=== PATIENT | female | born 1945 | race Caucasian/White ===

== ENCOUNTER 2017-01-24 11:55 | Outpatient (CLI) | payer OTHER ==
--- NOTE | 2017-01-24 12:33 | DI ---
EXAM: RIGHT SHOULDER HISTORY: Shoulder pain FINDINGS: Right shoulder three-view. Bone and joint structures are within normal limits. There is no joint dislocation or fracture identified. Bone density and soft tissues are unremarkable. IMPRESSION: Within normal limits.
== END 2017-01-24 11:56 | disposition home or self-care (01) ==
LOC: RAD 11:55
PROVIDERS: ATTEND Family Medicine
DX: T14.8XXA Other injury of unspecified body region, initial encounter (principal); M25.519 Pain in unspecified shoulder

== ENCOUNTER 2017-04-06 09:00 | Outpatient (RCR) ==
--- NOTE | 2017-03-25 15:37 | RS.OPPTEV2 ---
Date of Note: 03/25/17 Visit #: 1 Date of Evaluation: 03/25/17 Payer Source: MEDICARE Surgery Performed?: No Treatment Diagnosis: R shoulder pain, L plantar fascitis History of Condition/Mechanism of Injury:: pt states R shld pain began around after working in flower beds carrying bags of rock. pt states her L foot began hurting approx a month ago. Prior Level of Function.....Patient was independent with: ADL's, Self Care, Caregiving, Ambulation/Mobility, Community Integration/Access Functional Limitations: Reaching, Pulling, Lifting, Carrying, Ambulation Current Subjective/complaints:: pt c/o pain in R shld limiting motion. pt is RUE dominant. pt also with c/o L pain in medial heel. pt states that she did get inserts for her shoes and it has helped "some" with the foot pain. *Precautions: n/a Medical History Medical History: Unremarkable Smoking Status: Never smoker Hx Home Medications: takes ibuprofen occasionally Patient's Goals: decrease pain and be able to perform normal activities. Pain Assessment - Pain Description Pain Location: R shld Pain Description: Sharp, Aching Current Pain Intensity: 6 Worst Pain Intensity: 8 Other Comments regarding Pain:: pt also has pain in L medial heel Functional Outcome Measure UE Functional Index: 70 (12%) - G Codes & Severity Modifier G Codes & Modifier: mobility current CJ. mobility goal CI Source of G Code score: UE functional index and PT eval Observation - Observation Posture: Forward Head, Rounded Shoulders, Increased Thoracic Kyphosis Gait - Gait Pattern General Gait Pattern Observation: No Deviations/Normal General Range of Motion: LUE WFL's. BLE WFL's Muscle Strength: LUE 5/5. BLE 5/5 Special Tests: pt with pain in L medial heel. pt presents with increased tightness in L heel cord as well as BLE hamstring tightness. pt noted pronation B feet. Shoulder ROM: Left WFL's Shoulder Muscle Strength: Left WFL's - Right Shoulder ROM Right Shoulder Flexion: 130 (AROM in supine) Right Shoulder Abduction: 100 (AROM in supine) Right Shoulder ROM Limitations: Soft Tissue Tightness, Muscle Weakness, Pain Comments: Ext rotation WFL's with pain - Right Shoulder Strength Right Shoulder Flexion: 4- Good- Right Shoulder Abduction: 3+ Fair+ Right Shoulder External Rotation: 3+ Fair+ Right Shoulder Internal Rotation: 4- Good- Comments: elbow flex/ext 4-/5 RUE - Special Tests Shoulder Empty Can (Supraspinatus) Test: Negative Right Shoulder Yergason's Test: Negative Right Shoulder Drop Arm Test: Negative Right Comments: + lift off test (subscapularis) on R Palpation Palpation Findings: Tenderness, Muscle Guarding (tenderness and muscle tightness and guarding in upper trap and subscapular treatment.) Sensation - Sensation Right Upper Extremity: Intact/Normal Left Upper Extremity: Intact/Normal Right Lower Extremity: Intact/Normal Left Lower Extremity: Intact/Normal Balance - Sitting Balance Static Sitting Balance: Normal Dynamic Sitting Balance: Normal - Standing Balance Static Standing Balance: Normal Dynamic Standing Balance: Normal - Treatment Modality: Ultrasound Parameters/Method Applied: 1.5w/cm2 x 7 mins Treatment Area: R shld and upper trap Patient Position: Sitting Interventions - Exercise/Activities/Manual Therapy Exercises/Activities: pt performed scapular retraction with yellow tband, upper trap stretch, and AP, inversion/eversion x 10 reps with red tband Total minutes of Exercise: 12 Manual Therapy: n/a HOME EXERCISE PROGRAM: pt given written HEP with scapular retraction with yellow theraband, corner stretches, upper trap stretch as well as for L foot given copy of heel cord stretch, hamstring stretch, AP and inversion/eversion with red tband - Charges Timed Code Treatment Minutes: 58 Total Treatment Time: 69 Procedures billed for this date of service:: baldemar mckinnon, ex Assessment Assessment: pt presents with R shld pain with ROM and limiting functional mobility as well as pain in L foot which is increased with walking/standing. Feel pt would benefit from skilled PT for therex for ROM/stretching, strengthening as well as education regarding posture to improve funcitonal mobility Patient Education: Home Exercise Program, Home Safety, Education of Plan of Care Rehab Potential: Good Short Term Goals Goal #1: pt present with improved R shld flex 150 abd 110 Goal to be met by: 04/08/17 Goal #2: pt report decreased pain in L heel and R shld Goal to be met by: 04/08/17 Goal #3: pt demonstrate improved strength R shld flex 4-/5, elbow flex/ext 4/5 Goal to be met by: 04/08/17 Penitentiary Goals Goal #1: pt with improved strength RUE 4 to 4+/5 independent with HEP. Goal to be met by: 04/24/17 Goal #2: Improved ROM R shld flex 170 abd 130 to allow her to perform home activity Goal to be met by: 04/24/17 Goal #3: pt with rate pain L heel <2/10 with activity Goal to be met by: 04/24/17 Goal #4: pt able to tolerate prolonged standing to perform daily activities. Goal to be met by: 04/24/17 Plan - Treatment to be Provided Procedures: Therapeutic Exercises, Therapeutic Activity, Manual Therapy, Patient Education Modalities: Electrical Stimulation, Ultrasound/Phonophoresis, Cryotherapy, Hot Packs - Treatment Plan Frequency: 2 X week Duration: 4 weeks ORDER # VISITS AND/OR THROUGH DATE: 04/24/17 - Treatment Code (1) Pain in joint, shoulder region Code(s): M25.519 - PAIN IN UNSPECIFIED SHOULDER Qualifiers: Laterality: right Qualified Code(s): M25.511 - Pain in right shoulder (2) Plantar fasciitis of left foot Code(s): M72.2 - PLANTAR FASCIAL FIBROMATOSIS
--- NOTE | 2017-03-29 10:42 | RS.OPPTDN ---
Subjective Date of Note: 03/29/17 Visit #: 2 Date of Evaluation: 03/25/17 Payer Source: MEDICARE Treatment Diagnosis: R shoulder pain, L plantar fascitis Current Subjective/complaints:: Patient reports reduction in pain in the right upper traps following US and EX. States she is working on HEP as instructed and left foot pain seems better. Reports she performs pulling to assist her mother getting up steps into their home, which may have aggravated her pain. *Precautions: n/a Pain Assessment - Pain Description Pain Location: Right upper traps and shoulder. Left foot. Current Pain Intensity: mild - Treatment Modality: Ultrasound Parameters/Method Applied: [id number] at 1.5w/cm2 to the right upper traps prior to MT and EX. Patient in sitting. - Heat/Cryotherapy Treatment: Hot Pack ([id number] to the left foot prior to stretching. Patient in sitting. ) Interventions - Exercise/Activities/Manual Therapy Exercises/Activities: [id number] Assisted stretching of lateral cervical flexion and levator scapula, bilaterally. Right mid scap stretch with UE across midline. Scapular retraction and shoulder shrugs. Assisted stretching of the plantar fascia and heel cords of the left foot. Isometric df, multiple reps. Total minutes of Exercise: 15mins Manual Therapy: x5mins Trigger point release to the right upper trap muscle belly. Also, friction massage to the left foot plantar fascia following stretching. Total minutes of Manual Therapy: 5mins HOME EXERCISE PROGRAM: pt given written HEP with scapular retraction with yellow theraband, corner stretches, upper trap stretch as well as for L foot given copy of heel cord stretch, hamstring stretch, AP and inversion/eversion with red tband - Charges Timed Code Treatment Minutes: 30mins Total Treatment Time: 40mins Procedures billed for this date of service:: HP, US, EX Assessment: Patient responding well to treatment with reports of reduction of pain. She seems motivated to work on and progress HEP. Patient Education: Body/Joint mechanics, Home Exercise Program, Home Safety, Activity Modification Comments: Advised patient to avoid walking barefoot in her home, to soak in Epsom salt bath, and use frozen water bottle for friction massage. 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 Goal to be met by: 04/24/17 Progress towards goal: Progressing Goal #2: Improved ROM R shld flex 170 abd 130 to allow her to perform home activity Goal to be met by: 04/24/17 Goal #3: pt with rate pain L heel <2/10 with activity Goal to be met by: 04/24/17 Goal #4: pt able to tolerate prolonged standing to perform daily activities. Goal to be met by: 04/24/17 Plan PLAN OF CARE EXPIRES ON:: 04/24/17 ORDER # VISITS AND/OR THROUGH DATE: 04/24/17 PLAN: Coninue modalities and progress stretching and strengthening exercise to reduce pain and increase functional activity level.
--- NOTE | 2017-03-31 16:20 | RS.OPPTDN ---
Subjective Date of Note: 03/31/17 Visit #: 3 Date of Evaluation: 03/25/17 Payer Source: MEDICARE Treatment Diagnosis: R shoulder pain, L plantar fascitis Current Subjective/complaints:: Patient reports pain in the right shoulder and upper trap has improved. She reports little to no pain in the left heel. States she is working on HEP. *Precautions: n/a Pain Assessment - Pain Description Current Pain Intensity: 3-4/10 right shoulder/UT, and 1-2/10 left heel - Treatment Modality: Ultrasound Parameters/Method Applied: [id number] to the right upper trap and into the cervical parapsinals. Patient Position: Sitting - Heat/Cryotherapy Treatment: Hot Pack ([id number] to the c-spine and left heel. Patient in sitting. ) Interventions - Exercise/Activities/Manual Therapy Exercises/Activities: [id number] Assisted stretching of lateral cervical flexion and levator scapula, bilaterally. Right mid scap stretch with UE across midline. Scapular retraction and shoulder shrugs. Isometric cervical retraction. Green theraband for scapular retraction. Assisted stretching of the plantar fascia and heel cords of the left foot. Isometric df, multiple reps. Total minutes of Exercise: 15mins Manual Therapy: x3mins Trigger point release to the right upper trap muscle belly. Also, friction massage to the left foot plantar fascia following stretching. Total minutes of Manual Therapy: 3mins HOME EXERCISE PROGRAM: pt given written HEP with scapular retraction with yellow theraband, corner stretches, upper trap stretch as well as for L foot given copy of heel cord stretch, hamstring stretch, AP and inversion/eversion with red tband. Isometric cervical retraction. - Charges Timed Code Treatment Minutes: 28mins Total Treatment Time: 43mins Procedures billed for this date of service:: HP, US, EX Assessment: Patient progressing well and is able to walk without increasing pain. 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 Goal to be met by: 04/24/17 Progress towards goal: Progressing Goal #2: Improved ROM R shld flex 170 abd 130 to allow her to perform home activity Goal to be met by: 04/24/17 Goal #3: pt with rate pain L heel <2/10 with activity Goal to be met by: 04/24/17 Progress towards goal: Met Goal #4: pt able to tolerate prolonged standing to perform daily activities. Goal to be met by: 04/24/17 Progress towards goal: Progressing Plan PLAN OF CARE EXPIRES ON:: 04/24/17 ORDER # VISITS AND/OR THROUGH DATE: 04/24/17 PLAN: Continue with modalities and progress exercise to reduce pain and increase functional activity level.
--- NOTE | 2017-04-06 11:45 | RS.OPPTDN ---
Subjective Date of Note: 04/06/17 Visit #: 4 Date of Evaluation: 03/25/17 Payer Source: MEDICARE Treatment Diagnosis: R shoulder pain, L plantar fascitis Current Subjective/complaints:: Patient reports she has seen significant improvement in pain and use of the right shoulder/UE. She reports she can perform most ADL's. She reports little to no pain in left foot or limitation in ambulation. States she feels she is ready for discharge with HEP. *Precautions: n/a Pain Assessment - Pain Description Pain Location: Right shoulder Pain Description: Aching Current Pain Intensity: mild Other Comments regarding Pain:: Reports increase in discomfort with some movements, mainly ER to reach behind back. Little to no discomfort left foot. - Treatment Modality: Ultrasound Parameters/Method Applied: [id number] at 1.5w/cm2 to the right shoulder joint prior to EX. Patient Position: Sitting - Heat/Cryotherapy Treatment: Hot Pack ([id number] to the right shoulder and to the left foot prior to US and EX. Patient in sitting. ) Interventions - Exercise/Activities/Manual Therapy Exercises/Activities: [id number] Assisted stretching of lateral cervical flexion and levator scapula, bilaterally. Scapular retraction and shoulder shrugs. Isometric cervical retraction. Reveiwed green theraband for scapular retraction. Began yellow theraband for bilateral shoulder ER. Also, towel behind back for gentle shoulder ER stretch. Assisted stretching of the plantar fascia and heel cords of the left foot. Isometric df, multiple reps. Reviewed HEP for right shoulder and left foot stretching and strengthening. Total minutes of Exercise: 13mins Manual Therapy: x2mins Trigger point release to the right upper trap muscle belly. Delayed latent trigger point with no active radicular symptoms. Total minutes of Manual Therapy: 2mins HOME EXERCISE PROGRAM: pt given written HEP with scapular retraction with yellow theraband, corner stretches, upper trap stretch as well as for L foot given copy of heel cord stretch, hamstring stretch, AP and inversion/eversion with red tband. Isometric cervical retraction. - Objective Findings Observations,measurements,etc.: Reviewed questions of FOM. Patients score improves to 76/80 or 5% deficit (was 63/80 or 21% on Eval). Paitent demos full right shoulder flexion and MMT 4 to 4+/5 in right shoulder. Patient demos good postural awareness and is independent with HEP. - Charges Timed Code Treatment Minutes: 25mins Total Treatment Time: 50mins Procedures billed for this date of service:: HP, US, EX Assessment: Patient has progressed well and has met all treatment goals. She will continue HEP to reduce pain and increase functional activity level. Patient Education: Education of diagnosis, Body/Joint mechanics, Home Exercise Program, Education of Plan of Care Patient demonstrates compliance with HEP?: Yes Short Term Goals Goal #1: pt present with improved R shld flex 150 abd 110 Goal to be met by: 04/08/17 Progress towards Goal:: Met Goal #2: pt report decreased pain in L heel and R shld Goal to be met by: 04/08/17 Progress towards Goal:: Met Goal #3: pt demonstrate improved strength R shld flex 4-/5, elbow flex/ext 4/5 Goal to be met by: 04/08/17 Progress towards Goal:: Met Long-Term Goals Goal #1: pt with improved strength RUE 4 to 4+/5 independent with HEP. Goal to be met by: 04/24/17 Progress towards goal: Met Goal #2: Improved ROM R shld flex 170 abd 130 to allow her to perform home activity Goal to be met by: 04/24/17 Progress towards goal: Met Goal #3: pt with rate pain L heel <2/10 with activity Goal to be met by: 04/24/17 Progress towards goal: Met Goal #4: pt able to tolerate prolonged standing to perform daily activities. Goal to be met by: 04/24/17 Progress towards goal: Met Plan PLAN OF CARE EXPIRES ON:: 04/24/17 ORDER # VISITS AND/OR THROUGH DATE: 04/24/17 PLAN: Discharge at this time with HEP.
--- NOTE | 2017-04-07 08:33 | RS.OPPTDC ---
Date of Discharge: 04/06/17 Date of Evaluation: 03/25/17 Number of Visits: 4 Treatment Diagnosis: R shoulder pain, L plantar fascitis Current Level of Function: pt with improved strength R shld 4 to 4+/5 with ROM WFL's. pt with good postural awareness and independent with HEP. Current Complaints/Gains: pt states she can do most ADL's at home. pt is independent with HEP Pain Assessment - Pain Description Pain Location: mild pain Pain Description: Aching Functional Outcome Measure UE Functional Index: 76 (5%) - G Codes & Severity Modifier G Codes & Modifier: mobility goal CI. mobility dc CI Source of G Code score: UE functional scale Observation - Observation Posture: Forward Head, Rounded Shoulders Handedness: Right Gait - Gait Pattern General Gait Pattern Observation: No Deviations/Normal General Range of Motion: WFL's Muscle Strength: R shld 4 to 4+/5 Interventions - Exercise/Activities/Manual Therapy Exercises/Activities: n/a Manual Therapy: n/a HOME EXERCISE PROGRAM: pt given written HEP with scapular retraction with yellow theraband, corner stretches, upper trap stretch as well as for L foot given copy of heel cord stretch, hamstring stretch, AP and inversion/eversion with red tband. Isometric cervical retraction. - Charges Timed Code Treatment Minutes: n/a Total Treatment Time: n/a Procedures billed for this date of service:: n/a Assessment Assessment: pt has met all goals 10/29. pt is independent with HEP and is dc due to progress Patient Education: Education of diagnosis, Home Exercise Program, Education of Plan of Care Rehab Potential: Good Short Term Goals Goal #1: pt present with improved R shld flex 150 abd 110 Goal to be met by: 04/08/17 Progress towards Goal:: Met Goal #2: pt report decreased pain in L heel and R shld Goal to be met by: 04/08/17 Progress towards Goal:: Met Goal #3: pt demonstrate improved strength R shld flex 4-/5, elbow flex/ext 4/5 Goal to be met by: 04/08/17 Progress towards Goal:: Met Fpc Goals Goal #1: pt with improved strength RUE 4 to 4+/5 independent with HEP. Goal to be met by: 04/24/17 Progress towards goal: Met Goal #2: Improved ROM R shld flex 170 abd 130 to allow her to perform home activity Goal to be met by: 04/24/17 Progress towards goal: Met Goal #3: pt with rate pain L heel <2/10 with activity Goal to be met by: 04/24/17 Progress towards goal: Met Goal #4: pt able to tolerate prolonged standing to perform daily activities. Goal to be met by: 04/24/17 Progress towards goal: Met Plan Reason for Discharge:: All Goals Met
== END 2017-04-24 ==
PROVIDERS: ATTEND Family Medicine
DX: M25.511 Pain in right shoulder (principal); M72.2 Plantar fascial fibromatosis